=== PATIENT | male | born 1990 | race American Indian/Alaskan Native ===

== ENCOUNTER 2016-11-13 01:33 | Emergency (ER) | payer SELFPAY ==
[2016-11-13] MEDS ORDERED: PEPCID IV ONE (01:56)
[2016-11-13] MEDS ORDERED: BENADRYL IV ONE (01:56)
--- NOTE | 2016-11-13 02:10 | Emergency Department Report ---
HPI - General Chief Complaint: Allergic Reaction Time Seen by Provider: 11/13/16 02:04 - HPI HPI: Room 26 The patient is a 26-year-old male presenting with a chief complaint of allergic reaction. Patient states she was at a [employer] this evening and at approximately 01:15 he accidentally ate 4-5 crabcakes because he thought they were meatballs. The patient states once he realized they were crabcakes he began feeling pain in his neck as he knows he is allergic to seafood. Patient states en route to the hospital developed itching and pain in his neck. Patient denies shortness of breath. The patient received Solu-Medrol 125 mg IV , famotidine 20 mg IV and Benadryl 50 mg IV in the ED and now states he feels "straight." Location: Neck Duration: [see above] Quality: Itching, pain Severity: moderate Modifying factors: [see above] Context: [see above] Mode of transportation: [not driving] ED Past Medical Hx - Past Medical History Previous Medical History?: No - Surgical History Past Surgical History?: No - Family History Family history: no significant - Social History Smoking Status: Never Smoker Substance Use Type: None, Alcohol (occasional) - Medications Home Medications: Home Medications Medication Instructions Recorded Confirmed Last Taken Type EPINEPHrine [Epipen 2-Juan] 0.3 mg IM ONCE PRN #0.6 ml 11/13/16 Unknown Rx Famotidine [Pepcid] 20 mg PO BID #6 tablet 11/13/16 Unknown Rx Prednisone [predniSONE 10 mg 10 mg PO .TAPER #1 tab.ds.pk 11/13/16 Unknown Rx (6-Day Pack, 21 Tabs)] diphenhydrAMINE [Benadryl CAP] 50 mg PO Q6H #12 capsule 11/13/16 Unknown Rx ED Review of Systems ROS: Stated complaint: POSS REACTION TO FISH Other details as noted in HPI Comment: All other systems reviewed and negative Constitutional: denies: chills, fever Eyes: denies: eye pain, eye discharge, vision change ENT: throat pain Respiratory: denies: shortness of breath Cardiovascular: denies: chest pain, palpitations Endocrine: no symptoms reported Gastrointestinal: denies: abdominal pain, nausea, diarrhea Genitourinary: denies: urgency, dysuria Musculoskeletal: denies: back pain, joint swelling, arthralgia Skin: rash Neurological: denies: headache, weakness, paresthesias Psychiatric: denies: anxiety, depression Hematological/Lymphatic: denies: easy bleeding, easy bruising Physical Exam - Physical Exam Vital Signs: Vital Signs 11/13/16 01:42 Temperature 97.9 F Pulse Rate 87 Respiratory 20 Rate Blood Pressure 142/94 [Right] O2 Sat by Pulse 97 Oximetry Physical Exam: GENERAL: The patient is well-developed well-nourished male lying on stretcher not appearing to be in acute distress. [] HEENT: Normocephalic. Atraumatic. Extraocular motions are intact. Patient has moist mucous membranes. Oropharynx clear NECK: Supple. No meningitic signs are noted. There is no adenopathy noted. Mild erythema and urticaria surrounding anterior neck. No stridor CHEST/LUNGS: Clear to auscultation. There is no respiratory distress noted. HEART/CARDIOVASCULAR: Regular. There is no tachycardia. There is no gallop rub or murmur. ABDOMEN: Abdomen is soft, nontender. Patient has normal bowel sounds. There is no abdominal distention. SKIN: There is erythema and urticaria surrounding the anterior neck. There is no diaphoresis. NEURO: The patient is awake, alert, and oriented. The patient is cooperative. The patient has normal speech MUSCULOSKELETAL: There is no evidence of acute injury. ED Course Vital Signs 11/13/16 01:42 Temperature 97.9 F Pulse Rate 87 Respiratory 20 Rate Blood Pressure 142/94 [Right] O2 Sat by Pulse 97 Oximetry - Reevaluation(s) Reevaluation #1: 11/13/16 03:52 Patient states he continues to feel normal. ED Medical Decision Making - Radiology Data Radiology results: image reviewed (lateral soft tissue neck x-ray) interpreted by me: Lateral soft tissue neck x-ray-no prevertebral swelling. No evidence of epiglottic swelling. Patent airway - Differential Diagnosis acute allergic reaction Critical care attestation.: If time is entered above; I have spent that time in minutes in the direct care of this critically ill patient, excluding procedure time. ED Disposition Clinical Impression: Acute allergic reaction Disposition: DISCHARGED TO HOME OR SELFCARE Is pt being admited?: No Does the pt Need Aspirin: No Condition: Stable Instructions: Food Allergy (ED), Anaphylaxis (ED) Additional Instructions: Return to the emergency department immediately should you develop worsening symptoms, fever, inability to tolerate food or liquid or any other concerns. Prescriptions: EPINEPHrine [Epipen 2-Juan] 0.3 mg IM ONCE PRN #0.6 ml PRN Reason: Shortness Of Breath Famotidine [Pepcid] 20 mg PO BID #6 tablet Prednisone [predniSONE 10 mg (6-Day Pack, 21 Tabs)] 10 mg PO .TAPER #1 tab.ds.pk diphenhydrAMINE [Benadryl CAP] 50 mg PO Q6H #12 capsule Referrals: RON WILLIAMSON MD [Staff Physician] - 3-5 Days (Dr. Williamson is an card setter. Please follow with her for further evaluation) Time of Disposition: 03:52
[2016-11-13 04:07] VITALS: BP 142/88
--- NOTE | 2016-11-13 09:49 | XRay Report ---
X-RAY SOFT TISSUE NECK TWO VIEWS: 11/13/16 02:09:00 CLINICAL: Allergic reaction and throat pain. FINDINGS: Normal airway and soft tissues. No mass or foreign body. No soft tissue air or mediastinal air. The bones are normal. IMPRESSION: Normal study.
== END 2016-11-13 04:07 | disposition home or self-care (01) ==
LOC: ED 01:33
DX: T78.40XA Allergy, unspecified, initial encounter (principal); Y92.9 Unspecified place or not applicable
CPT/HCPCS: 70360; 96374; 96375; 99283; J1200; J2930